=== PATIENT | female | born 1960 | race Caucasian/White ===

== ENCOUNTER 2019-03-20 07:32 | Emergency (ER) | payer BC ==
--- NOTE | 2019-03-20 07:42 | EDM.PDOC ---
ED HPI GENERAL MEDICAL PROBLEM - General Chief Complaint: Abdominal Pain Stated Complaint: ABDOMINAL PAIN [id number] Time Seen by Provider: 03/20/19 07:42 Source of Information: Reports: Patient, RN, RN Notes Reviewed History Limitations: Reports: No Limitations - History of Present Illness INITIAL COMMENTS - FREE TEXT/NARRATIVE: Pt presents to ER from home by POV with c/o waking at 0200HRS this morning with generalized abdominal cramping, sharp & burning epigastric pain, nausea, vomiting, and diarrhea. She admits to chills with vomiting. Denies fever, cough , bloody or coffee ground emesis, bloody, black, tarry, or melanotic stools. She last at 2 chocolate chip cookies at approx. 2030HRS last night. Her last meal was at [employer] at 1500HRS yesterday. She states she went to bed feeling well. No suspected bad food. No known sick contacts. Onset: Today, Sudden Onset Date: 03/20/19 Onset Time: 02:00 Duration: Constant Location: Reports: Abdomen Quality: Reports: Ache, Burning, Sharp, Other (Cramping) Severity: Severe Improves with: Reports: None Worsens with: Reports: Eating Associated Symptoms: Reports: No Other Symptoms Epigastric Pain Score (Numeric/FACES): 8 - Related Data Allergies Allergy/AdvReac Type Severity Reaction Status Date / Time amoxicillin [From Augmentin] Allergy Diarrhea Verified 03/20/19 07:39 clavulanic acid Allergy Diarrhea Verified 03/20/19 07:39 [From Augmentin] Home Meds: Home Meds Sertraline HCl [Zoloft] 200 mg PO QAM 03/20/19 [History] Verapamil HCl [Verelan] 360 mg PO QPM 03/20/19 [History] Past Medical History Cardiovascular History: Reports: Hypertension Psychiatric History: Reports: Depression Social & Family History - Family History Family Medical History: Noncontributory - Tobacco Use Smoking Status *Q: Current Some Day Smoker Tobacco Use Within Last Twelve Months: Cigarettes - Alcohol Use Alcohol Use History: Yes Alcohol Use Frequency: Socially - Living Situation & Occupation Living situation: Reports: , with Family (son) Occupation: Retired ED ROS GENERAL - Review of Systems Review Of Systems: ROS reveals no pertinent complaints other than HPI. ED EXAM, GI/ABD - Physical Exam Exam: See Below Exam Limited By: No Limitations General Appearance: Alert, WD/WN, Moderate Distress (with abdominal cramps, nausea and diarrhea), Active Emesis Eyes: Bilateral: Normal Appearance (No scleral icterus), EOMI Ears: Normal External Exam, Hearing Grossly Normal Nose: Normal Inspection, Normal Mucosa, No Blood Throat/Mouth: Normal Lips, Normal Oropharynx, Normal Voice, No Airway Compromise , Other (Dry oral mucosa) Head: Atraumatic, Normocephalic Neck: Normal Inspection, Supple, Non-Tender, Full Range of Motion. No: Lymphadenopathy (L), Lymphadenopathy (R) Respiratory/Chest: No Respiratory Distress, Lungs Clear, Normal Breath Sounds, No Accessory Muscle Use, Chest Non-Tender Cardiovascular: Normal Peripheral Pulses, Regular Rate, Rhythm, No Edema, No Gallop, No JVD, No Murmur, No Rub GI/Abdominal Exam: Soft, No Organomegaly, No Distention, No Abnormal Bruit, No Mass, Tender (mild generalized tenderness, no peritoneal signs), Abnormal Bowel Sounds (hyperactive). No: Guarding, Rigid, Rebound (Female) Exam: Deferred Rectal (Female) Exam: Deferred Back Exam: Normal Inspection, Full Range of Motion. No: CVA Tenderness (L), CVA Tenderness (R) Extremities: Normal Inspection, Non-Tender, Normal Capillary Refill Neurological: Alert, Oriented, CN II-XII Intact, Normal Cognition, Normal Gait, Normal Reflexes, No Motor/Sensory Deficits Psychiatric: Normal Mood Skin Exam: Warm, Dry, Intact, Normal Color, No Rash Course - Vital Signs Last Recorded V/S: Last Vital Signs Temp 35.7 C 03/20/19 07:36 Pulse 90 03/20/19 07:36 Resp 18 03/20/19 07:36 BP 163/101 H 03/20/19 07:36 Pulse Ox 99 03/20/19 07:36 - Orders/Labs/Meds Orders: Active Orders 24 hr Category Date Time Status Peripheral IV Care [RC] . DIRECTED Care 03/20/19 07:51 Active CULTURE STOOL [RM] Stat Lab 03/20/19 07:51 Ordered Sodium Chloride 0.9% [Saline Flush] Med 03/20/19 07:51 Active 10 ml FLUSH ASDIRECTED PRN Peripheral IV Insertion Adult [OM.PC] Stat Oth 03/20/19 07:50 Ordered Medication Orders Sodium Chloride (Saline Flush) 10 ml FLUSH ASDIRECTED PRN PRN Reason: Keep Vein Open Last Admin: 03/20/19 07:52 Dose: 10 ml Labs: Laboratory Tests 03/20/19 03/20/19 03/20/19 Range/Units 07:50 07:50 10:20 WBC 17.2 H (5.0-10.0) 10^3/uL RBC 4.66 (4.2-5.4) 10^6/uL Hgb 14.2 (12.0-16.0) g/dL Hct 42.7 (37.0-47.0) % MCV 91.6 (80-100) fL MCH 30.5 (27.0-34.0) pg MCHC 33.3 (33.0-35.0) g/dL Plt Count 244 (150-450) 10^3/uL Neut % (Auto) 84.3 H (42.2-75.2) % Lymph % (Auto) 10.5 L (20.5-50.1) % [place] % (Auto) 4.9 (2-8) % Eos % (Auto) 0.1 L (1.0-3.0) % Baso % (Auto) 0.2 (0.0-1.0) % Sodium 142 (135-145) mmol/L Potassium 3.6 (3.6-5.0) mmol/L Chloride 105 (101-111) mmol/L Carbon Dioxide 21.0 (21.0-31.0) mmol/L Anion Gap 19.6 BUN 11 (7-18) mg/dL Creatinine 0.7 (0.6-1.3) mg/dL Est Cr Clr Drug Dosing 67.59 mL/min Estimated GFR (MDRD) > 60 BUN/Creatinine Ratio 15.71 Glucose 176 H (74-105) mg/dL Calcium 9.4 (8.4-10.2) mg/dl Total Bilirubin 0.5 (0.2-1.0) mg/dL AST 34 (10-42) IU/L ALT 23 (10-60) IU/L Alkaline Phosphatase 53 (42-121) IU/L Total Protein 7.6 (6.7-8.2) g/dl Albumin 5.0 (3.2-5.5) g/dl Globulin 2.6 Albumin/Globulin Ratio 1.92 Amylase 95 (28-100) U/L Lipase 82 H (22-51) U/L Urine Color Yellow (YELLOW) Urine Appearance Clear (CLEAR) Urine pH 8.5 (5.0-9.0) Ur Specific [place] 1.015 (1.005-1.030) Urine Protein Negative (NEGATIVE) Urine Glucose (UA) 100 H (NEGATIVE) Urine Ketones Negative (NEGATIVE) Urine Occult Blood Negative (NEGATIVE) Urine Nitrite Negative (NEGATIVE) Urine Bilirubin Negative (NEGATIVE) Urine Urobilinogen 0.2 (0.2-1.0) mg/dL Ur Leukocyte Esterase Negative (NEGATIVE) Meds: Medications Generic Name Dose Route Start Last Admin Trade Name Freq PRN Reason Stop Dose Admin Sodium Chloride 10 ml 03/20/19 07:51 03/20/19 07:52 Saline Flush FLUSH 10 ml ASDIRECTED PRN Administration Keep Vein Open Discontinued Medications Generic Name Dose Route Start Last Admin Trade Name Freq PRN Reason Stop Dose Admin Dicyclomine HCl 20 mg 03/20/19 08:30 03/20/19 08:38 Bentyl IM 03/20/19 08:31 20 mg ONETIME ONE Administration Diphenhydramine HCl 25 mg 03/20/19 07:51 03/20/19 08:00 Benadryl IVPUSH 03/20/19 07:52 25 mg ONETIME ONE Administration Sodium Chloride 1,000 mls @ 999 mls/hr 03/20/19 07:51 03/20/19 07:58 Normal Saline IV 03/20/19 08:51 999 mls/hr .BOLUS ONE Administration Sodium Chloride 1,000 mls @ 999 mls/hr 03/20/19 09:20 03/20/19 09:30 Normal Saline IV 03/20/19 10:20 999 mls/hr .BOLUS ONE Administration Iopamidol 75 ml 03/20/19 09:20 03/20/19 09:50 Isovue-300 (61%) IVPUSH 03/20/19 09:21 75 ml ONETIME ONE Administration Morphine Sulfate 2 mg 03/20/19 07:52 03/20/19 08:02 Morphine IVPUSH 03/20/19 07:53 2 mg ONETIME ONE Administration Morphine Sulfate 4 mg 03/20/19 09:20 03/20/19 09:30 Morphine IVPUSH 03/20/19 09:21 4 mg ONETIME ONE Administration Ondansetron HCl 4 mg 03/20/19 07:51 03/20/19 07:58 Zofran IV 03/20/19 07:52 4 mg ONETIME ONE Administration Ondansetron HCl 4 mg 03/20/19 09:20 03/20/19 09:29 Zofran IV 03/20/19 09:21 4 mg ONETIME ONE Administration - Radiology Interpretation Free Text/Narrative:: CT Abdomen/Pelvis: left renal cyst, no acute process per Rad. report. Departure - Departure Time of Disposition: 10:59 Disposition: Home, Self-Care 01 Condition: Fair Clinical Impression: Gastroenteritis presumed infectious, Cyst of left kidney, Hyperglycemia - Discharge Information *PRESCRIPTION DRUG MONITORING PROGRAM REVIEWED*: No *COPY OF PRESCRIPTION DRUG MONITORING REPORT IN PATIENT ANGELITO: No Instructions: Viral Gastroenteritis, Adult, [id number] Forms: ED Department Discharge Additional Instructions: Rx: Dicyclomine 20mg Rx: Zofran 4mg Clear liquid diet until nausea and vomiting resolve, then advance to soft bland diet as tolerated. Avoid dairy products, fried or greasy foods, and spicy foods until completely improved. Follow up in clinic if not improving in 3 to 5 days. Return to ER if pain becomes severe, you are unable to tolerated clear liquids without vomiting, or if any other emergent symptoms develop. - My Orders Last 24 Hours: My Active Orders 03/20/19 07:50 Peripheral IV Insertion Adult [OM.PC] Stat 03/20/19 07:51 Peripheral IV Care [RC] . DIRECTED CULTURE STOOL [RM] Stat Sodium Chloride 0.9% [Saline Flush] 10 ml FLUSH ASDIRECTED PRN - Assessment/Plan Last 24 Hours: My Active Orders 03/20/19 07:50 Peripheral IV Insertion Adult [OM.PC] Stat 03/20/19 07:51 Peripheral IV Care [RC] . DIRECTED CULTURE STOOL [RM] Stat Sodium Chloride 0.9% [Saline Flush] 10 ml FLUSH ASDIRECTED PRN
[2019-03-20] MEDS ORDERED: Sodium Chloride 0.9% 1,000 ML IV ONE ×2 (07:51→09:20)
[2019-03-20] MEDS ORDERED: Sodium Chloride 0.9% 10 ML Syringe FLUSH PRN (07:51)
[2019-03-20] MEDS ORDERED: Ondansetron 4 MG/2 ML SDV IV ONE ×2 (07:51→09:20)
[2019-03-20] MEDS ORDERED: diphenhydrAMINE 50 MG/ML SDV IVPUSH ONE (07:51)
[2019-03-20] MEDS ORDERED: Morphine 2 MG/ML Syringe IVPUSH ONE (07:52)
[2019-03-20 08:17] LABS: ANION GAP 19.6; CHLORIDE,CL 105 mmol/L (101-111); SODIUM,NA 142 mmol/L (135-145)
[2019-03-20] MEDS ORDERED: Dicyclomine 20 MG/2 ML SDV IM ONE (08:30)
[2019-03-20] MEDS ORDERED: Iopamidol 612 MG/ML 75 ML Bottle IVPUSH ONE (09:20)
[2019-03-20] MEDS ORDERED: Morphine 4 MG/ML Syringe IVPUSH ONE (09:20)
--- NOTE | 2019-03-20 10:09 | CT ---
Clinical history: 59-year-old 140 pound female abdominal pain, blood/mucus in stool (diarrhea) and white blood cell count 17,000 (hysterectomy). Scan technique: Volume acquisition of data from the abdomen and pelvis obtained without oral contrast but during/after intravenous infusion 75 cc nonionic Isovue contrast while patient was lying supine on the Siemens multi slice scanner [place], [place]. All data archived in the PACS system for storage, reformatting axial/sagittal/coronal planes and study. Interpretation: 1. Gallbladder, liver, stomach, spleen, pancreas and adrenal glands unremarkable. 2. Large 3.3 cm diameter lower pole cortical cyst right kidney. No other renal cortical mass lesion, signs of nephrolithiasis or obstructive uropathy. Symmetrically distended normal appearing urinary bladder. Surgically absent uterus/ovaries. 3. No pelvic or abdominal mass lesion, mesenteric or retroperitoneal lymphadenopathy, inflammatory "dirty" peritoneal fat, signs of mechanical bowel obstruction, ascites or free intraperitoneal air. 4. Normal cardiac silhouette. Lung bases clear. Faint calcifications normal caliber aortoiliac vessels. Lumbar spine negative. CONCLUSION: Lower pole right renal cyst. No sign of malignancy or acute intraperitoneal abnormality.
== END 2019-03-20 11:30 | disposition home or self-care (01) ==
LOC: DL.ED 07:32
DX: K52.9 Noninfective gastroenteritis and colitis, unspecified (principal); N28.1 Cyst of kidney, acquired; R73.9 Hyperglycemia, unspecified; I10 Essential (primary) hypertension; F17.210 Nicotine dependence, cigarettes, uncomplicated; Z88.1 Allergy status to other antibiotic agents
CPT/HCPCS: 36415; 74177; 80053; 81003; 82150; 83690; 85025; 96361; 96372; 96374; 96375; 96376; 99284; J0500; J1200; J2270; J2405; J7030; Q9967

== ENCOUNTER 2021-03-18 06:24 | Day surgery (SDC) | payer BC ==
[~2021-03-18 06:24] MED LIST: Dextrose 5%-0.45% NaCl 1,000 ML IV SCH; Midazolam 1 MG/ML 2 ML SDV ONE; Sodium Chloride 0.9% 10 ML Syringe FLUSH PRN; fentaNYL 100 MCG/2 ML SDV ONE
[2021-03-18] MEDS ORDERED: Midazolam 1 MG/ML 2 ML SDV IV ONE ×7 (06:25→07:16)
[2021-03-18] MEDS ORDERED: fentaNYL 100 MCG/2 ML SDV IV ONE ×6 (06:25→07:20)
--- NOTE | 2021-03-18 12:32 | OR ---
DATE: 03/18/2021 PROCEDURES: Total colonoscopy, NBI, and multiple cold snare polypectomies. INSTRUMENT USED: [id number]-H190DL Olympus video colonoscope. PREMEDICATIONS: Fentanyl 150 mcg intravenous, Versed 4 mg intravenous. The procedure was done under pulse oximetry, BP recording, and skip hoist operator. INDICATION: The patient with previous colonic polyps. Colonoscopic examination is done for detection of any polypoid lesions and removal, endoscopic hemostasis therapy if needed. DESCRIPTION OF PROCEDURE: Initial rectal exam was unremarkable. Rigid anoscopy was normal. The colonoscope was passed with ease. Few scattered diverticula were noted in the distal left colon along with deformity. The scope was passed with ease up to the ileocecal area. Photographs were taken of the normal- appearing cecum identified by landmarks of appendiceal orifice and double-bulged ileocecal folds. No bleeding was noted from any of the visualized areas at the commencement of the examination. The bowel preparation was found to be adequate, [place] scale 2 in all the areas, total score 6. No stricture. No vascular ectasia. No large isolated ulcerations seen. No evidence of diffuse inflammatory bowel disease in the form of friability, contact bleeding, or ulcerations. Probing the proximal sides of folds and flexures using adequate distention and clearing up the stool material, withdrawal of the scope was made. In the proximal ascending colon, 2 superficial sessile polyps less than 1 cm sized noted. NBI views were obtained, photographs were taken, cold snare polypectomies were done. The tissues were retrieved and sent for histopathology. No bleeding was noted from any of the visualized areas at the completion of examination. IMPRESSION: 1. Diverticulosis. 2. Ascending colon polyps. The patient tolerated the procedure well. [facility] /[id number]
== END 2021-03-18 09:55 | disposition home or self-care (01) ==
LOC: DL.ENDO 06:24
PROVIDERS: ATTEND Internal Medicine Gastroenterology
DX: Z12.11 Encounter for screening for malignant neoplasm of colon (principal); D12.2 Benign neoplasm of ascending colon; K57.30 Diverticulosis of large intestine without perforation or abscess without bleeding; I10 Essential (primary) hypertension; E78.00 Pure hypercholesterolemia, unspecified; Z88.6 Allergy status to analgesic agent; Z88.1 Allergy status to other antibiotic agents; Z91.013 Allergy to seafood; Z86.010 Personal history of colon polyps
CPT/HCPCS: J2250; J3010; J7042